=== PATIENT | male | born 1950 | race Hispanic/Latino ===

== ENCOUNTER 2017-09-09 19:36 | Emergency (ER) | payer MEDICARE, OTHER ==
[~2017-09-09] VITALS: Ht 167.6 cm; Wt 97.5 kg
[2017-09-09] MEDS ORDERED: HYDROCHLOROTH12.5 M1 PO (19:59)
[2017-09-09] MEDS ORDERED: ZESTRIL40 MG PO (19:59)
[2017-09-09] MEDS ORDERED: ATORVASTATIN CA80 MG PO (20:00)
[2017-09-09] MEDS ORDERED: TYLENOL WITH C1 EACH PO (20:00)
[2017-09-09] MEDS ORDERED: NITROSTAT0.4 MG SL (20:01)
--- NOTE | 2017-09-10 23:14 | EKG ---
[facility] [address] [place], [place] [address] Signed Normal sinus rhythm Left axis deviation Nonspecific T wave abnormality Abnormal ECG No previous ECGs available Confirmed by KIERA RABAGO MD ([id number] on 09/10/2017 11:13:57 PM Electronically Signed By: KIERA RABAGO MD 09/10/17 2314 PATIENT NAME: SAUD MERCADO Electrocardiogram DATE OF : 46 PHYSICIAN: KIERA RABAGO MD REPORT #: [id number] REPORT IS CONFIDENTIAL AND NOT TO BE RELEASED WITHOUT AUTHORIZATION
== END 2017-09-09 21:45 | disposition home or self-care (01) ==
LOC: ED 19:36
DX: R07.9 Chest pain, unspecified (principal); R51 Headache; I10 Essential (primary) hypertension; R94.5 Abnormal results of liver function studies; I25.10 Atherosclerotic heart disease of native coronary artery without angina pectoris; Z90.49 Acquired absence of other specified parts of digestive tract; Z79.899 Other long term (current) drug therapy
CPT/HCPCS: 71020; 80053; 84484; 85025; 93005; 93010; 99284

== ENCOUNTER 2021-09-25 17:22 | Emergency (ER) | payer MEDICARE, OTHER ==
[~2021-09-25] VITALS: Ht 167.6 cm; Wt 104.4 kg
[~2021-09-25 17:22] MED LIST: ATORVASTATIN CA80 MG PO; HYDROCHLOROTH12.5 M1 PO; NITROSTAT0.4 MG SL; TYLENOL WITH C1 EACH PO; ZESTRIL40 MG PO
[2021-09-25] MEDS ORDERED: AMLODIPINE BESY10 MG PO (19:02)
[2021-09-25] MEDS ORDERED: NORVASC10 MG PO (21:55)
--- NOTE | 2021-09-26 07:09 | EKG ---
[facility] [address] [facility] [facility] [place] [address] Signed Normal sinus rhythm Left axis deviation Nonspecific T wave abnormality Abnormal ECG When compared with ECG of 09-SEP-2017 19:46, No significant change was found Confirmed by NORMA OGDEN MD ([id number] on 09/26/2021 7:09:38 AM Electronically Signed By: NORMA OGDEN MD 09/26/21 0709 PATIENT NAME: SAUD MERCADO Electrocardiogram DATE OF : 46 PHYSICIAN: NORMA OGDEN MD REPORT #: [id number] REPORT IS CONFIDENTIAL AND NOT TO BE RELEASED WITHOUT AUTHORIZATION
== END 2021-09-25 22:17 | disposition home or self-care (01) ==
LOC: ED 17:22
DX: I10 Essential (primary) hypertension (principal); H91.91 Unspecified hearing loss, right ear; I25.10 Atherosclerotic heart disease of native coronary artery without angina pectoris; Z79.899 Other long term (current) drug therapy
CPT/HCPCS: 71046; 80048; 84484; 85025; 93005; 93010; 99284-25